=== PATIENT | female | born 1930 ===

== ENCOUNTER 2019-01-25 17:41 | Outpatient (CLI) | payer MEDICARE, MEDICAID ==
--- NOTE | 2019-01-25 18:29 | RAD ---
RIGHT KNEE: 01/25/19 Four views. HISTORY: Knee pain. Recent fall. 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 Loss of lateral joint space. Prominent spurring from the lat eral compartment. Mild spurring at the patellofemoral joint and moderate spurring at the medial comp artment. IMPRESSION: Moderate degenerative changes noted. No fracture and no joint effusion. POS: [facility]
== END 2019-01-25 17:42 | disposition home or self-care (01) ==
LOC: SCSRAD 17:41
PROVIDERS: ATTEND Family Medicine
DX: M25.561 Pain in right knee (principal); I73.9 Peripheral vascular disease, unspecified; M17.11 Unilateral primary osteoarthritis, right knee